=== PATIENT | male | born 1980 | race Caucasian/White ===

== ENCOUNTER 2017-09-14 17:18 | Emergency (ER) | payer MEDICAID ==
[~2017-09-14] VITALS: Ht 162.6 cm; Wt 78.6 kg
[2017-09-14 17:21] VITALS: BP 148/83; Ht 162.6 cm; Wt 78.6 kg
== END 2017-09-14 19:24 | disposition home or self-care (01) ==
LOC: ED 17:18
DX: S01.01XA Laceration without foreign body of scalp, initial encounter (principal); W18.30XA Fall on same level, unspecified, initial encounter; Y93.89 Activity, other specified; Y99.8 Other external cause status; Y92.89 Other specified places as the place of occurrence of the external cause
CPT/HCPCS: J2001